=== PATIENT | male | born 1975 | race Caucasian/White ===

== ENCOUNTER 2021-12-03 19:23 | Emergency (ER) | payer OTHER ==
[~2021-12-03] VITALS: Ht 182.9 cm; Wt 99.8 kg
--- NOTE | 2021-12-03 20:04 | NUR ---
Dr. Rose at bedside for MSE.
[2021-12-03] MEDS ORDERED: ASPI81TA31 PO (20:13)
[2021-12-03] MEDS ORDERED: DICYCLOMINE HCL LIQ 10 MG/5 ML UDC PO ONE (20:30)
[2021-12-03] MEDS ORDERED: DIPHENOXYLATE HCL/ATROP SULF TABLET PO ONE (20:30)
[2021-12-03] MEDS ORDERED: ONDANSETRON 4 MG/2 ML VIAL IV ONE (20:30)
[2021-12-03] MEDS ORDERED: HYDROMORPHONE 1 MG/1 ML DISP.SYRIN IV ONE (20:30)
[2021-12-03] MEDS ORDERED: IV NORMAL SALINE 1000 ML BAG IV ONE (20:30)
[2021-12-03 20:34] LABS: MEAN CORPUSCULAR HEMOGLOBIN 31.2 uug (23.8-33.4); MEAN CORPUSCULAR VOLUME 92.2 fL (73.0-96.2); PLATELET COUNT (AUTO) 240 K/uL (152-348)
[2021-12-03] MEDS ORDERED: ONDANSETRON 4 MG/2 ML VIAL ONE (20:47)
[2021-12-03] MEDS ORDERED: HYDROMORPHONE 1 MG/1 ML DISP.SYRIN ONE (20:47)
[2021-12-03] MEDS ORDERED: DIPHENOXYLATE HCL/ATROP SULF TABLET ONE (20:48)
[2021-12-03 21:01] LABS: POTASSIUM 3.5 mmol/L (3.5-5.1)
[2021-12-03 21:07] LABS: BILIRUBIN,DIRECT 0.2 mg/dL (0.0-0.2); BILIRUBIN,TOTAL 0.5 mg/dL (0.2-1.0); TOTAL PROTEIN, SERUM 8.2 g/dL (6.4-8.2)
[2021-12-03] MEDS ORDERED: DICYCLOMINE HCL 10 MG CAPSULE ONE (21:16)
[2021-12-03] MEDS ORDERED: ONDA4TAB5 PO (21:40)
[2021-12-03] MEDS ORDERED: DICY20TA11 PO (21:40)
[2021-12-03] MEDS ORDERED: LOPE-195 PO (21:40)
--- NOTE | 2021-12-03 21:46 | NUR ---
Patient discharged to home in stable condition. Written and verbal after care instructions given. Patient verbalizes understanding of instructions. Stressed follow up or return to ER for worsening s/s. Patient out of ER with steady gait, no acute signs of distress, VSS, all belongings taken, IV site discontinued, provided with copies of lab results, instructed not to drive, to be driven home via ub[employer].
[2021-12-03 21:47] VITALS: BP 140/100
[2021-12-03] MEDS ORDERED: METOCLOPRAMIDE HCL 10 MG/2 ML VIAL IV ONE (22:00)
[2021-12-03] MEDS ORDERED: METOCLOPRAMIDE HCL 10 MG/2 ML VIAL ONE (22:05)
== END 2021-12-03 21:47 | disposition home or self-care (01) ==
LOC: ER 19:31
DX: R19.7 Diarrhea, unspecified (principal); R11.2 Nausea with vomiting, unspecified; Z20.822 Contact with and (suspected) exposure to COVID-19; Z86.718 Personal history of other venous thrombosis and embolism; Z79.82 Long term (current) use of aspirin; R03.0 Elevated blood-pressure reading, without diagnosis of hypertension
CPT/HCPCS: 36415; 80048; 80076; 83690; 85025; 87426; 96361; 96374; 96375; 99284; J1170; J2405; J2765; A4663; J7030

== ENCOUNTER 2022-01-17 11:27 | Emergency (ER) | payer OTHER ==
[~2022-01-17] VITALS: Ht 182.9 cm; Wt 106.6 kg
[~2022-01-17 11:27] MED LIST: ASPI81TA31 PO; DICY20TA11 PO; LOPE-195 PO; ONDA4TAB5 PO
--- NOTE | 2022-01-17 13:47 | NUR ---
Padded Colles thumb spica and josephine bandage placed over (L) wrist/hand. Pt given verbal instructions on proper use. Pt states understanding information. CD and printed copy of images provided. Patient discharged to home in stable condition. Written and verbal after care instructions given. Patient verbalizes understanding of instructions. Stressed follow up or return to ER for worsening s/s.
[2022-01-17 13:50] VITALS: BP 127/75
== END 2022-01-17 13:51 | disposition home or self-care (01) ==
LOC: ER 11:27
DX: S63.641A Sprain of metacarpophalangeal joint of right thumb, initial encounter (principal); Z88.2 Allergy status to sulfonamides; Z79.82 Long term (current) use of aspirin; Z79.2 Long term (current) use of antibiotics; Z79.899 Other long term (current) drug therapy; Y04.2XXA Assault by strike against or bumped into by another person, initial encounter; Y93.89 Activity, other specified; Y92.89 Other specified places as the place of occurrence of the external cause; Y99.8 Other external cause status
CPT/HCPCS: 73110; A4663